=== PATIENT | female | born 1970 | race African-American/Black ===

== ENCOUNTER 2018-04-05 13:39 | Emergency (ER) | payer MEDICAID ==
[~2018-04-05] VITALS: Ht 167.6 cm; Wt 74.0 kg
[2018-04-05 14:37] VITALS: BP 128/79
[2018-04-05] MEDS ORDERED: IBUPROFEN 600MG TABLET PO ONE (14:45)
== END 2018-04-05 14:38 | disposition home or self-care (01) ==
LOC: ER 13:39
DX: L02.211 Cutaneous abscess of abdominal wall (principal); Z90.710 Acquired absence of both cervix and uterus
CPT/HCPCS: 99283

== ENCOUNTER 2018-04-11 09:51 | Emergency (ER) | payer MEDICAID ==
[~2018-04-11] VITALS: Ht 167.6 cm; Wt 87.2 kg
[2018-04-11] MEDS ORDERED: TETANUS, DIPHTHERIA, PERTUSSIS VAC/PF 0.5ML (>7YR OLD) IM ONE (10:30)
[2018-04-11] MEDS ORDERED: BACITRACIN ZINC OINT UDPKT TOP ONE (10:30)
[2018-04-11] MEDS ORDERED: LIDOCAINE 1%/EPI 1:100,000 10 ML VIAL IJ ONE (10:30)
[2018-04-11] MEDS ORDERED: IBUPROFEN 600MG TABLET PO ONE (10:30)
[2018-04-11 10:50] VITALS: BP 164/77
== END 2018-04-11 11:43 | disposition home or self-care (01) ==
LOC: ER 09:51
DX: L02.211 Cutaneous abscess of abdominal wall (principal); F17.200 Nicotine dependence, unspecified, uncomplicated; Z90.710 Acquired absence of both cervix and uterus; Z87.828 Personal history of other (healed) physical injury and trauma; Z88.1 Allergy status to other antibiotic agents; Z88.8 Allergy status to other drugs, medicaments and biological substances; W57.XXXA Bitten or stung by nonvenomous insect and other nonvenomous arthropods, initial encounter; Y93.89 Activity, other specified; Y92.89 Other specified places as the place of occurrence of the external cause; Y99.8 Other external cause status
CPT/HCPCS: 10060; 90471; 90715; 99283; J3490